=== PATIENT | male | born 1980 | race Caucasian/White ===

== ENCOUNTER 2019-05-21 18:21 | Emergency (ER) | payer OTHER, SELFPAY ==
[2019-05-21 18:38] VITALS: BP 116/70; PULSE 112; RESP 20; TEMP 37.2; O2SAT 97
--- NOTE | 2019-05-21 19:07 | ED.BACK ---
HPI - Back Pain/Injury General Chief Complaint: Back Pain/Injury Stated Complaint: BACK PAIN Time Seen by Provider: 05/21/19 19:07 Source: patient Mode of arrival: Ambulatory Limitations: no limitations History of Present Illness HPI Narrative: 38-year-old male comes to the emergency department complaint of low back pain. Patient has had back issues from herniated disc from around 2007 or . He states his symptoms usually intermittent but has become more constant. He states that he will get the sweats sometimes he wakes up from sleep sweating sometimes if he is having lot of back pain during the day. He states that it is usually related pain he does not think that he is having fevers. Patient states the pain is in his low back on both sides not so much midline. He has radiation of pain down his right leg a little bit into his left buttock. He denies any numbness, tingling or weakness into his lower extremities. No fecal or urinary incontinence. He states that he was given a prescription for some Valium. States he has not been taking anything else [id number] for pain. He did take oxycodone that he had left over and has since run out from prior prescription and that was helpful. Patient has never had any back surgery. He has never had any back interventions. Patient states that even sneezing or sudden movements will cause him pain. He denies any medical issues besides dyslipidemia and asthma, he denies any other surgeries. No allergies to medications. No tobacco, occasional alcohol, occasional THC. He lives on [facility] with his significant other. Related Data Previous Rx's Medication Instructions Recorded diazepam [Valium] 5 mg PO TID PRN #7 tab 05/21/19 oxycodone 5 mg PO Q8H PRN #7 tab 05/21/19 Review of Systems Review of Systems ROS Unobtainable: All systems reviewed & are unremarkable except as noted in HPI and below Patient History Social History (Updated 05/21/19 @ 19:23 by Ivania Guillen DO) Smoking Status: Never smoker alcohol intake: current Smoking Status: Never smoker Exam Narrative Exam Narrative: GENERAL: Alert and oriented x three, well-nourished, well-appearing male in moderate distress. HEENT: Head normocephalic, atraumatic, EOMI, pupils reactive, face symmetric, moist mucous membranes NECK: Supple, full range of motion CARDIOVASCULAR: Regular rate and rhythm without murmurs, rubs or gallops. RESPIRATORY: Breath sounds equal bilaterally, no wheezes rales or rhonchi. ABDOMEN: Soft, nontender. Normoactive bowel sounds all 4 quadrants. No guarding or rebound, rigidity, no mass : No CVA tenderness BACK: No cervical, thoracic or lumbar vertebral point tenderness. Patient has tenderness bilateral soft tissue in the lower lumbar region and adjacent to the SI region. Patient has decreased range of motion he is able to sit up in bed with minimal assistance. Patient's gait is [antalgic/normal]. Rectal exam is deferred. Muscle strength is 5/5 in lower extremities, DTRs are 2/4 and lower extremities. Patient has increased discomfort with right straight leg raise, cap refill less than 2 seconds bilaterally. Sensation is intact in the lower extremities. EXTREMITIES: Normal range of motion, no clubbing or edema. Neurovascularly intact NEUROLOGICAL: Cranial nerves II through XII grossly intact. Moving all extremities SKIN: Warm, dry, no petechiae, no rashes or lesions. Initial Vital Signs Initial Vital Signs: Vital Signs Temperature 99.0 F 05/21/19 18:38 Pulse Rate 112 H 05/21/19 18:38 Respiratory Rate 20 05/21/19 18:38 Blood Pressure 116/70 05/21/19 18:38 Pulse Oximetry 97 05/21/19 18:38 Course Orders Ordered: ED Orders 05/21/19 19:18 CT lumbar spine wo con Stat 05/21/19 20:25 C-Reactive Protein Quant Stat Complete Blood Count AUTO DIFF Stat Comprehensive Metabolic Panel Stat Erythrocyte Sedimentation Rate Stat Discontinued Medications Diazepam (Valium) 5 mg IV NOW ONE Stop: 05/21/19 19:20 Last Admin: 05/21/19 20:19 Dose: 5 mg Documented by: MALCOLM Sodium Chloride (Normal Saline 0.9%) 1,000 mls @ 1,000 mls/hr IV BOLUS ONE Stop: 05/21/19 20:18 Last Admin: 05/21/19 20:19 Dose: 1,000 mls/hr Documented by: MALCOLM Ketorolac Tromethamine (Toradol) 30 mg IV NOW ONE Stop: 05/21/19 19:20 Last Admin: 05/21/19 20:18 Dose: 30 mg Documented by: MALCOLM Oxycodone/Acetaminophen (Endocet 5/325 Prepack) 1 bottle MISC SEEINSTR ONE Stop: 05/21/19 21:33 Last Admin: 05/21/19 21:47 Dose: 1 bottle Documented by: MALCOLM Vital Signs Vital signs: Vital Signs - 8 hr 05/21/19 18:38 05/21/19 21:58 Temperature 99.0 F Pulse Rate 112 H 89 Respiratory Rate 20 18 Blood Pressure 116/70 121/81 Pulse Oximetry 97 99 MDM - Back Pain/Injury Lab Data Attestation: I reviewed the patient's lab results. Result diagrams: 05/21/19 20:25 05/21/19 20:25 Labs: Lab Results 05/21/19 05/21/19 Range/Units 20:25 20:25 WBC 7.0 (4.5-11.0) X10^3/uL RBC 4.56 (4.5-5.9) X10^6/uL Hgb 14.5 (13.5-17.5) g/dL Hct 41.2 (41-53) % MCV 90.3 (80-100) fL MCH 31.8 (26-34) PG MCHC 35.2 (30-36) % RDW 12.6 (11.6-14.8) % Plt Count 165 (150-400) X10^3/uL Neut % (Auto) 55.8 (50-75) % Lymph % (Auto) 32.2 (25-40) % Shelby % (Auto) 8.3 (3-14) % Eos % (Auto) 3.1 (2-4) % Baso % (Auto) 0.6 (0-2) % Neut # (Auto) 3900 (6056-4215) /uL Lymph # (Auto) 2200 (9632-5342) /uL Shelby # (Auto) 600 (0-900) /uL Eos # (Auto) 200 (0-450) /uL Baso # (Auto) 0 (0-100) /uL ESR 6 (0-15) MM/HR Sodium 139 (137-145) mmol/L Potassium 3.8 (3.4-5.1) mmol/L Chloride 104 (98-107) mmol/L Carbon Dioxide 27 (22-32) mmol/L BUN 17 (9-20) mg/dL Creatinine 0.92 (0.66-1.25) mg/dL Estimated GFR > 60.0 (>60) mL/min BUN/Creatinine Ratio 18.5 (6-22) Glucose 103 H (70-100) mg/dL Calcium 9.3 (8.4-10.2) mg/dL Total Bilirubin 0.5 (0.2-1.3) mg/dL AST 57 (17-59) IU/L ALT 114 H (<50) IU/L Alkaline Phosphatase 69 (38-126) U/L C-Reactive Protein < 0.5 (<1.0) mg/dL Total Protein 7.3 (6.3-8.2) g/dL Albumin 4.3 (3.5-5.0) g/dL Globulin 3.0 (1.7-4.1) g/dL Albumin/Globulin Ratio 1.4 (1.0-2.8) Imaging Data Lspine CT: Radiologist's Impression: [place] [address] CT Scan Report Signed Patient: Fabián Barrera#: [id number] : 1980Acct:[id number] Age/Sex: 38 / MDate of Service: 05/21/19 Loc: ED Accession Number: [id number] Procedure: CT lumbar spine wo con Ordering Provider: Ivania Guillen D.O. PROCEDURE: CT LUMBAR SPINE WO CON INDICATIONS: L4/5 pain, bilaterally, sweats, no point tenderness, epidural abscess TECHNIQUE: Noncontrast 3 mm thick sections acquired from the T12 level to the sacrum. Sagittal and coronal reformats were constructed. For radiation dose reduction, the following was used: automated exposure control. COMPARISON: None. FINDINGS: Image quality: Excellent. Bones: There is normal bony alignment. No acute vertebral body compression fractures. No suspicious lytic or blastic bony lesions. Central spinal caliber is of normal overall caliber. No pars defects. Soft tissues: No retroperitoneal masses or hematomas. Visualized aorta is normal in caliber. IMPRESSION: No discitis or osteomyelitis is identified. No inflammation along the paravertebral soft tissues is seen. By this examination no acute disease is suspected. Depending on clinical status followup by MR scanning without and with contrast may become necessary. Dictated by: Bernard Feng M.D. on 05/21/2019 at 19:53 Approved by: Bernard Feng M.D. on 05/21/2019 at 19:54 MDM Narrative Medical decision making narrative: Patient's labs and imaging are not suspicious for infection and patient does not have tenderness on palpation of his L-spine. He is uncomfortable in his lower back. He has had issues for many years. His initial imaging on CT does not show major changes to the bone. Discussed short course of muscle relaxant and pain control and he needs follow-up with primary care and if he is having persistent pain may need to follow up with someone for his back specifically. Red flag symptoms were discussed with patient, patient does not have any at this time. Patient and I discussed medication options, need for follow-up and symptoms to return. He has had moderate improvement in his back pain with the medications here tonight. Discharge Plan Departure Patient Disposition: Home Clinical Impression: Acute exacerbation of chronic low back pain Discharge Date/Time: 05/21/19 22:00 Instructions: DI for Lumbar Radiculopathy Activity Restrictions/Additional Instructions: Follow-up with your physician or an orthopedic surgeon regarding your back pain. They may wish to order additional imaging in the future. Take pain medication as prescribed, this medication can make you sleepy do not drive, perform hazardous activities or make any major decisions while taking it. Return to the ER for fevers greater 100.4 F, loss of bowel or bladder control, new weakness numbness or inability to use your extremities, rapidly worsening symptoms, or other new or concerning symptoms. Prescriptions: New oxycodone 5 mg tablet 5 mg PO Q8H PRN (Reason: pain) Qty: 7 RF: 0 diazepam [Valium] 5 mg tablet 5 mg PO TID PRN (Reason: muscle spasm) Qty: 7 RF: 0 Referrals: Kel Schmid MD [Physician] -
--- NOTE | 2019-05-21 19:18 | DI.CT.S_ITS ---
PROCEDURE: CT LUMBAR SPINE WO CON INDICATIONS: L4/5 pain, bilaterally, sweats, no point tenderness, epidural abscess TECHNIQUE: Noncontrast 3 mm thick sections acquired from the T12 level to the sacrum. Sagittal and coronal reformats were constructed. For radiation dose reduction, the following was used: automated exposure control. COMPARISON: None. FINDINGS: Image quality: Excellent. Bones: There is normal bony alignment. No acute vertebral body compression fractures. No suspicious lytic or blastic bony lesions. Central spinal caliber is of normal overall caliber. No pars defects. Soft tissues: No retroperitoneal masses or hematomas. Visualized aorta is normal in caliber. IMPRESSION: No discitis or osteomyelitis is identified. No inflammation along the paravertebral soft tissues is seen. By this examination no acute disease is suspected. Depending on clinical status followup by MR scanning without and with contrast may become necessary. Dictated by: Bernard Feng M.D. on 05/21/2019 at 19:53 Approved by: Bernard Feng M.D. on 05/21/2019 at 19:54
[2019-05-21] MEDS: KETOROLAC 60 MG/2 ML VIAL 30 MG IV (20:18)
[2019-05-21] MEDS: SODIUM CHLORIDE 0.9% 1,000 ML 1000 ML IV (20:19)
[2019-05-21] MEDS: diazePAM 10 MG/2 ML SYRINGE 5 MG IV (20:19)
--- NOTE | 2019-05-21 20:34 | PC.NURSE ---
reports chronic back pain from injury in the late . Comes in today refered from [facility] with concern of spinal abcess. Pateint reports waking in up in sweats several times in the last week. Afebrile in ED today. Reports he has taken prescribed valum and oxy with little to no relief
[2019-05-21 20:40] LABS: Add Manual Diff / Slide Review NO; Basophils Absolute Auto 0 /uL (0-100); Basophils Percent Auto 0.6 % (0-2); Eosinophils Absolute Auto 200 /uL (0-450); Eosinophils Percent Auto 3.1 % (2-4); Hematocrit 41.2 % (41-53); Hemoglobin 14.5 g/dL (13.5-17.5); Lymphocytes Absolute Auto 2200 /uL (1100-4500); Lymphocytes Percent Auto 32.2 % (25-40); Mean Corpuscular HGB Conc 35.2 % (30-36); Mean Corpuscular Hemoglobin 31.8 PG (26-34); Mean Corpuscular Volume 90.3 fL (80-100); Monocytes Absolute Auto 600 /uL (0-900); Monocytes Percent Auto 8.3 % (3-14); Neutrophils Absolute Auto 3900 /uL (1500-7000); Neutrophils Percent Auto 55.8 % (50-75); Platelet Count 165 X10^3/uL (150-400); Red Blood Cell Count 4.56 X10^6/uL (4.5-5.9); Red Cell Distribution Width 12.6 % (11.6-14.8)
[2019-05-21 21:03] LABS: Alanine Aminotransferase 114 IU/L (<50); Albumin 4.3 g/dL (3.5-5.0); Albumin Globulin Ratio 1.4 (1.0-2.8); Alkaline Phosphatase 69 U/L (38-126); Aspartate Aminotransferase 57 IU/L (17-59); BUN Creatinine Ratio 18.5 (6-22); Bilirubin Total 0.5 mg/dL (0.2-1.3); Blood Urea Nitrogen 17 mg/dL (9-20); C-Reactive Protein Quant < 0.5 mg/dL (<1.0); Calcium 9.3 mg/dL (8.4-10.2); Carbon Dioxide 27 mmol/L (22-32); Chloride 104 mmol/L (98-107); Estimated Glomerular Filt Rate > 60.0 mL/min (>60); Glucose 103 mg/dL (70-100); HEMOLYSIS 51 (0-50); Potassium 3.8 mmol/L (3.4-5.1); Sodium 139 mmol/L (137-145); Total Protein 7.3 g/dL (6.3-8.2)
[2019-05-21 21:15] LABS: Erythrocyte Sedimentation Rate 6 MM/HR (0-15)
[2019-05-21] MEDS: OXYCODONE/APAP 5/325 PREPACK 1 BOTTLE MISC (21:47)
[2019-05-21 21:58] VITALS: BP 121/81; PULSE 89; RESP 18; O2SAT 99
== END 2019-05-21 22:00 | disposition home or self-care (01) ==
PROVIDERS: Emergency Provider Emergency Medicine
DX: M54.5 Low back pain (principal)
CPT/HCPCS: 36415; 72131; 80053; 85025; 85651; 86140; 96374; 96375; 99284; J1885; J3360

== ENCOUNTER → 2019-05-27 13:02 | Outpatient (CLI) | payer OTHER, SELFPAY ==
--- NOTE | 2019-05-27 | DI.MRI.S_ITS ---
PROCEDURE: MR LUMBAR SPINE WO CON INDICATIONS: Radiculopathy, lumbar region, low back pain TECHNIQUE: Noncontrast sagittal T1 spin echo and T2 fast echo, sagittal STIR, axial T1 and T2 fast spin echo through the lumbar spine. In cases with scoliosis, additional coronal T2 fast spin echo may be performed. COMPARISON: None. FINDINGS: Image quality: Excellent. Alignment and Curvature: Straightening of the normal lordotic curvature. Bone Marrow: No fracture. Multilevel degenerative endplate sclerosis and spurring. Diffuse facet arthropathy. Spinal Cord: Conus medullaris terminates at the T12-L1 level. Visualized cord demonstrates normal signal and size. Paraspinous Soft Tissues: No paravertebral masses. L1-L2: Normal appearance. L2-L3: Normal appearance. L3-L4: Mild canal narrowing. Partial effacement of both lateral recesses with bilaterally symmetric appearance. No right foraminal stenosis. Mild left foraminal narrowing, with borderline nerve root compression. L4-L5: Posterior annular fissure. Mild canal narrowing. Partial effacement of both lateral recesses with bilaterally symmetric appearance. No foraminal stenosis. L5-S1: No canal stenosis. Lateral recesses appear patent. No foraminal narrowing IMPRESSION: Mild lower lumbar spondylosis and facet disease. Mild left L3-L4 foraminal narrowing Straightening of the normal lordotic curvature. Dictated by: Shahriar Montoya M.D. on 05/28/2019 at 12:02 Approved by: Shahriar Montoya M.D. on 05/28/2019 at 14:07
== END ==
PROVIDERS: PCP Family Medicine; Referring Provider Physical Medicine & Rehabilitation; Visit Provider Physical Medicine & Rehabilitation
DX: M54.5 Low back pain (principal); M47.26 Other spondylosis with radiculopathy, lumbar region; M48.061 Spinal stenosis, lumbar region without neurogenic claudication
CPT/HCPCS: 72148